=== PATIENT | male | born 1960 | race Two or more races ===

== ENCOUNTER 2023-01-04 06:18 | Emergency (ER) | payer OTHER ==
[~2023-01-04] VITALS: Ht 180.3 cm; Wt 95.3 kg
--- NOTE | 2023-01-04 06:25 | NUR ---
[id number] FROM [facility] C/O R KNEE PAIN S/P GLF. - HEAD TRAUMA. PATIENT IS AAOX4. ABLE TO MAKE NEEDS KNOWN. PLACED COMFORTABLY IN BED.
--- NOTE | 2023-01-04 06:34 | NUR ---
SEEN BY DR MARLEY AT TRIAGE AREA
--- NOTE | 2023-01-04 06:36 | NUR ---
DIRECTOR OF LABOR RELATIONS AT PT'S BEDSIDE
--- NOTE | 2023-01-04 06:48 | NUR ---
RUEL WRAP APPLIED TO AFFECTED LIMB
--- NOTE | 2023-01-04 06:49 | NUR ---
PT WILL TAUGHT HOW TO USE CRUTCHES
--- NOTE | 2023-01-04 08:11 | NUR ---
PATIENT WANTS TO BE WHEELED OUT OF THE EMERGENCY DEPT.
--- NOTE | 2023-01-04 08:25 | NUR ---
PATIENT REQUEST GRANTED , PROVIDED HIM BREAKFAST. WALK OUT THE HOSPITAL WITH CRUTCHES STEADY GAIT. NO SIGNS AND SYMPTOMS OF DISTRESS. STABLE VITAL SIGNS. DISCHARGE INSTRUCTIONS PROVIDED AND VERBALIZED UNDERSTANDING.
[2023-01-04 08:28] VITALS: BP 151/88
== END 2023-01-04 08:28 | disposition home or self-care (01) ==
LOC: ER 06:20
DX: S83.91XA Sprain of unspecified site of right knee, initial encounter (principal); Z60.2 Problems related to living alone; W01.0XXA Fall on same level from slipping, tripping and stumbling without subsequent striking against object, initial encounter; Y93.89 Activity, other specified; Y92.89 Other specified places as the place of occurrence of the external cause; Y99.8 Other external cause status
CPT/HCPCS: 73564-TC